=== PATIENT | female | born 1965 | race Caucasian/White ===

== ENCOUNTER 2016-06-18 12:50 | Emergency (ER) | payer BC, OTHER ==
[2016-06-18] MEDS ORDERED: SODIUM CHLORIDE 0.9% 500 ML IV STA (13:44)
[2016-06-18] MEDS ORDERED: RX INFO: IV CONTRAST WAS GIVEN 1 EACH MISC MISCELLANE PRN (13:44)
[2016-06-18] MEDS ORDERED: HYDROmorphone 1 MG/ML 1 ML SYRINGE IVP STA (13:44)
[2016-06-18] MEDS ORDERED: ONDANSETRON 4 MG/2 ML VIAL IVP STA (13:44)
[2016-06-18] MEDS ORDERED: ACETAMINOPHEN TAB 500 MG TAB PO STA (13:47)
[2016-06-18] MEDS ORDERED: IBUPROFEN IV 600 MG in SODIUM CHLORIDE 0.9% 250 ML IV STA (13:47)
--- NOTE | 2016-06-18 13:47 | ED ---
General Adult HPI - General Chief complaint: Abdominal Pain Stated complaint: Abd/Side Pain - Dr Sent Time Seen by Provider: 06/18/16 13:10 Source: patient, RN notes reviewed Mode of arrival: ambulatory Limitations: no limitations - History of Present Illness Initial comments: This is a 50-year-old female who presents emergency Department complaining of a day and a half of abdominal pain. Patient states it feels as though she is having uterine cramping however she is postmenopausal by 7 years. Patient states she also has some rectal pressure and she is sitting up. Patient states the pain is in the right lower quadrant and is much worse with palpation. She went to see her primary medical care doctor and he sent her into the emergency department to get a CAT scan. Patient denies any fever however in the emergency department we did get a fever. Patient denies any chest pain difficulty breathing or cough. Patient denies any back pain. Patient states she was nauseated earlier but did not vomit. Patient denies any diarrhea. - Related Data Home Medications Medication Instructions Recorded Confirmed Budesonide-Formot 160-4.5 Mcg 2 puff INHALATION RT-BID 11/15/13 06/18/16 [Symbicort 160-4.5 Mcg Inhaler] Albuterol Sulfate [Proair Hfa] 1 - 2 puff INHALATION RT-QID PRN 06/18/16 Valsartan [Diovan] 40 mg PO HS 06/18/16 06/18/16 Valsartan [Diovan] 80 mg PO DAILY 06/18/16 06/18/16 Varenicline [Chantix] 0.5 mg PO BID 06/18/16 06/18/16 Previous Rx's Medication Instructions Recorded Hydrocodone/Acetaminophen [[place]worth 1 each PO Q4HR PRN #20 tab 06/18/16 5-325] Ibuprofen [Motrin] 600 mg PO Q6HR PRN #20 tab 06/18/16 Levofloxacin [Levaquin] 750 mg PO DAILY #10 tab 06/18/16 metroNIDAZOLE [Flagyl] 500 mg PO QID 10 Days 06/18/16 Allergies Allergy/AdvReac Type Severity Reaction Status Date / Time latex Allergy Rash/Hives Verified 06/18/16 13:11 Review of Systems ROS Statement: Those systems with pertinent positive or pertinent negative responses have been documented in the HPI. ROS Other: All systems not noted in ROS Statement are negative. Past Medical History Past Medical History: Asthma History of Any Multi-Drug Resistant Organisms: None Reported Past Surgical History: Cholecystectomy Additional Past Surgical History / Comment(s): breast, fallopian tube Past Psychological History: No Psychological Hx Reported Smoking Status: Current every day smoker Past Alcohol Use History: None Reported Past Drug Use History: None Reported General Exam - General Exam Comments Initial Comments: GENERAL: Patient is well-developed and well-nourished. Patient is nontoxic and well- hydrated and is in mild distress. ENT: Neck is soft and supple. No significant lymphadenopathy is noted. Oropharynx is clear. Moist mucous membranes. Neck has full range of motion without eliciting any pain. EYES: The sclera were anicteric and conjunctiva were pink and moist. Extraocular movements were intact and pupils were equal round and reactive to light. Eyelids were unremarkable. PULMONARY: Unlabored respirations. Good breath sounds bilaterally. No audible rales rhonchi or wheezing was noted. CARDIOVASCULAR: There is a regular rate and rhythm without any murmurs gallops or rubs. ABDOMEN: Patient has significant right lower quadrant pain. No palpable organomegaly was noted. There is no palpable pulsatile mass. SKIN: Skin is clear with no lesions or rashes and otherwise unremarkable. NEUROLOGIC: Patient is alert and oriented x3. Cranial nerves II through XII are grossly intact. Motor and sensory are also intact. Normal speech, volume and content. Symmetrical smile. MUSCULOSKELETAL: Normal extremities with adequate strength and full range of motion. No lower extremity swelling or edema. No calf tenderness. LYMPHATICS: No significant lymphadenopathy is noted PSYCHIATRIC: Normal psychiatric evaluation. Normal interpersonal interactions appears functionally intact in deals appropriately with others. No signs of depression. No signs of anxiety. Limitations: no limitations Course Vital Signs 06/18/16 06/18/16 13:07 15:16 Temperature 99.5 F 99.1 F Pulse Rate 117 H 96 Respiratory 16 18 Rate Blood Pressure 171/87 152/78 O2 Sat by Pulse 100 96 Oximetry Medical Decision Making - Medical Decision Making CAT scan shows a uncomplicated diverticulitis of the sigmoid. I spoke with the patient about inpatient versus outpatient treatment she wanted to try outpatient treatment. - Lab Data Result diagrams: 06/18/16 14:05 06/18/16 14:05 Lab Results 06/18/16 06/18/16 06/18/16 Range/Units 14:05 14:05 14:05 WBC 13.0 H (3.8-10.6) k/uL RBC 4.70 (3.80-5.40) m/uL Hgb 14.5 (11.4-16.0) gm/dL Hct 42.5 (34.0-46.0) % MCV 90.4 (80.0-100.0) fL MCH 30.9 (25.0-35.0) pg MCHC 34.2 (31.0-37.0) g/dL RDW 13.3 (11.5-15.5) % Plt Count 380 (150-450) k/uL Neutrophils % 73 % Lymphocytes % 19 % Monocytes % 3 % Eosinophils % 2 % Basophils % 1 % Neutrophils # 9.6 H (1.3-7.7) k/uL Lymphocytes # 2.5 (1.0-4.8) k/uL Monocytes # 0.4 (0-1.0) k/uL Eosinophils # 0.3 (0-0.7) k/uL Basophils # 0.1 (0-0.2) k/uL Sodium 141 (137-145) mmol/L Potassium 4.3 (3.5-5.1) mmol/L Chloride 103 (98-107) mmol/L Carbon Dioxide 26 (22-30) mmol/L Anion Gap 12 mmol/L BUN 9 (7-17) mg/dL Creatinine 0.67 (0.52-1.04) mg/dL Est GFR (MDRD) Af Amer >60 (>60 ml/min/1.73 sqM) Est GFR (MDRD) Non-Af >60 (>60 ml/min/1.73 sqM) Glucose 83 (74-99) mg/dL Plasma Lactic Acid Elvin 0.7 (0.7-2.0) mmol/L Calcium 10.3 H (8.4-10.2) mg/dL Total Bilirubin 0.7 (0.2-1.3) mg/dL AST 18 (14-36) U/L ALT 26 (9-52) U/L Alkaline Phosphatase 93 (38-126) U/L Total Protein 8.0 (6.3-8.2) g/dL Albumin 4.5 (3.5-5.0) g/dL Amylase 66 (30-110) U/L Lipase 114 (23-300) U/L Urine Color Urine Appearance (Clear) Urine pH (5.0-8.0) Ur Specific [place] (1.001-1.035) Urine Protein (Negative) Urine Glucose (UA) (Negative) Urine Ketones (Negative) Urine Blood (Negative) Urine Nitrate (Negative) Urine Bilirubin (Negative) Urine Urobilinogen (<2.0) mg/dL Ur Leukocyte Esterase (Negative) 06/18/16 Range/Units 14:05 WBC (3.8-10.6) k/uL RBC (3.80-5.40) m/uL Hgb (11.4-16.0) gm/dL Hct (34.0-46.0) % MCV (80.0-100.0) fL MCH (25.0-35.0) pg MCHC (31.0-37.0) g/dL RDW (11.5-15.5) % Plt Count (150-450) k/uL Neutrophils % % Lymphocytes % % Monocytes % % Eosinophils % % Basophils % % Neutrophils # (1.3-7.7) k/uL Lymphocytes # (1.0-4.8) k/uL Monocytes # (0-1.0) k/uL Eosinophils # (0-0.7) k/uL Basophils # (0-0.2) k/uL Sodium (137-145) mmol/L Potassium (3.5-5.1) mmol/L Chloride (98-107) mmol/L Carbon Dioxide (22-30) mmol/L Anion Gap mmol/L BUN (7-17) mg/dL Creatinine (0.52-1.04) mg/dL Est GFR (MDRD) Af Amer (>60 ml/min/1.73 sqM) Est GFR (MDRD) Non-Af (>60 ml/min/1.73 sqM) Glucose (74-99) mg/dL Plasma Lactic Acid Elvin (0.7-2.0) mmol/L Calcium (8.4-10.2) mg/dL Total Bilirubin (0.2-1.3) mg/dL AST (14-36) U/L ALT (9-52) U/L Alkaline Phosphatase (38-126) U/L Total Protein (6.3-8.2) g/dL Albumin (3.5-5.0) g/dL Amylase (30-110) U/L Lipase (23-300) U/L Urine Color Light Yellow Urine Appearance Clear (Clear) Urine pH 6.5 (5.0-8.0) Ur Specific [place] 1.004 (1.001-1.035) Urine Protein Negative (Negative) Urine Glucose (UA) Negative (Negative) Urine Ketones Negative (Negative) Urine Blood Negative (Negative) Urine Nitrate Negative (Negative) Urine Bilirubin Negative (Negative) Urine Urobilinogen <2.0 (<2.0) mg/dL Ur Leukocyte Esterase Negative (Negative) Disposition Clinical Impression: Diverticulitis Disposition: HOME SELF-CARE Condition: Good Instructions: Diverticulitis (ED) Prescriptions: Hydrocodone/Acetaminophen [Wentworth 5-325] 1 each PO Q4HR PRN #20 tab PRN Reason: Pain Ibuprofen [Motrin] 600 mg PO Q6HR PRN #20 tab PRN Reason: For pain Levofloxacin [Levaquin] 750 mg PO DAILY #10 tab metroNIDAZOLE [Flagyl] 500 mg PO QID 10 Days Referrals: Callum Odonnell DO [Primary Care Provider] - 1-2 days Time of Disposition: 15:27
[2016-06-18 14:23] LABS: Basophils # (A) 0.1 k/uL (0-0.2); Basophils % (A) 1 %; CH 30.8; CHCM 34.3; Eosinophils # (A) 0.3 k/uL (0-0.7); Eosinophils % (A) 2 %; HCT 42.5 % (34.0-46.0); HDW 2.48; HGB 14.5 gm/dL (11.4-16.0); Luc # (Auto) 0.22; Luc % (Auto) 2; Lymphocytes # (A) 2.5 k/uL (1.0-4.8); Lymphocytes % (A) 19 %; MCH 30.9 pg (25.0-35.0); MCHC 34.2 g/dL (31.0-37.0); MCV 90.4 fL (80.0-100.0); Mean Platelet Volume 7.1; Monocytes # (A) 0.4 k/uL (0-1.0); Monocytes % (A) 3 %; Neutrophils # (A) 9.6 k/uL (1.3-7.7); Neutrophils % (A) 73 %; RDW 13.3 % (11.5-15.5); WBC (Perox) 12.91
[2016-06-18 14:27] LABS: Appearance,Urine Clear (Clear); Bilirubin,Urine Negative (Negative); Glucose,Urine (UA) Negative (Negative); Ketones,Urine Negative (Negative); Leukocyte Esterase,Urine Negative (Negative); Nitrite,Urine Negative (Negative); PH, Urine 6.5 (5.0-8.0); Protein,Urine Negative (Negative); Specific Gravity,Urine 1.004 (1.001-1.035); UA Billing (MACRO vs. MICRO) CHEM; Urobilinogen,Urine <2.0 mg/dL (<2.0)
[2016-06-18 14:31] LABS: ALT 26 U/L (9-52); AST 18 U/L (14-36); Alkaline Phosphatase 93 U/L (38-126); Amylase 66 U/L (30-110); Anion Gap 12 mmol/L; Blood Urea Nitrogen 9 mg/dL (7-17); Calcium 10.3 mg/dL (8.4-10.2); Carbon Dioxide 26 mmol/L (22-30); Chloride 103 mmol/L (98-107); Glucose 83 mg/dL (74-99); Non-African American GFR(MDRD) >60 (>60 ml/min/1.73 sqM); Potassium 4.3 mmol/L (3.5-5.1); Sodium 141 mmol/L (137-145); Total Bilirubin 0.7 mg/dL (0.2-1.3)
[2016-06-18 15:17] VITALS: BP 152/78; PULSE 96; RESP 18; TEMP 99.1
--- NOTE | 2016-06-18 15:24 | CT ---
EXAMINATION TYPE: CT abdomen pelvis w con DATE OF EXAM: 06/18/2016 3:18 PM COMPARISON: NONE HISTORY: Pain CT DLP: 1014.5 mGycm CONTRAST: Contrast-enhanced CT of the abdomen and pelvis was performed.Alml642/100ml. FINDINGS: LUNG BASES-: No visible nodule. No infiltrate. LIVER/GB: No calcified gallstones. No space occupying hepatic lesion. Biliary tree is of normal ca liber. PANCREAS: No inflammation. No distinct mass. SPLEEN: No splenic enlargement. No lesion seen. ADRENALS: No nodule. No thickening. KIDNEYS/BLADDER: No hydronephrosis. No nephrolithiasis. No disctinct renal mass. Urinary bladder g rossly unremarkable. BOWEL: There is mild diverticulitis involving the sigmoid colon. No evidence for abscess or perforati on. The remainder of the colon and small bowel are unremarkable. Normal appendix is visualized. GENITAL ORGANS: No gross abnormality. LYMPH NODES: No greater than 1cm abdominal or pelvic lymph nodes are appreciated. AORTA: No significant abnormality. OSSEOUS STRUCTURES: No significant abnormality is seen. OTHER: No significant additional abnormality is seen. IMPRESSION: 1. Mild uncomplicated sigmoid diverticulitis.
[2016-06-18] MEDS ORDERED: KETOROLAC 60 MG/2 ML VIAL IVP STA (15:29)
[2016-06-18] MEDS ORDERED: LEVOFLOXACIN 750 MG TAB PO STA (15:29)
[2016-06-18] MEDS ORDERED: metroNIDAZOLE 500 MG TAB PO STA (15:29)
== END 2016-06-18 16:12 | disposition home or self-care (01) ==
LOC: EC 12:50
DX: K57.32 Diverticulitis of large intestine without perforation or abscess without bleeding (principal); R50.9 Fever, unspecified; F17.200 Nicotine dependence, unspecified, uncomplicated; Z79.899 Other long term (current) drug therapy; J45.909 Unspecified asthma, uncomplicated; Z91.040 Latex allergy status; Z79.51 Long term (current) use of inhaled steroids
CPT/HCPCS: 99284; 96365; 96375 ×3; 36415; 80053; 82150; 83605; 83690; 85025; 81003; 74177; J2405; J1885; J1170; Q9967; J1741

== ENCOUNTER 2018-02-16 10:30 | Emergency (ER) | payer BC, OTHER ==
[2018-02-16 10:48] VITALS: BP 115/84; PULSE 94; RESP 16; TEMP 98.4
[2018-02-16] MEDS ORDERED: DIPH,PERTUS(ACELL)TETVAC-LF 0.5 ML VIAL IM ONE (11:00)
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
== END 2018-02-16 11:18 | disposition home or self-care (01) ==
LOC: EC 10:30
DX: S51.851A Open bite of right forearm, initial encounter (principal); J45.909 Unspecified asthma, uncomplicated; I10 Essential (primary) hypertension; F17.200 Nicotine dependence, unspecified, uncomplicated; Y04.1XXA Assault by human bite, initial encounter; Y92.89 Other specified places as the place of occurrence of the external cause; Y99.0 Civilian activity done for income or pay
CPT/HCPCS: 99283

== ENCOUNTER 2018-10-28 09:18 | Emergency (ER) | payer OTHER ==
[2018-10-28] MEDS ORDERED: MECLIZINE 12.5 MG TAB PO STA (09:46)
[2018-10-28] MEDS ORDERED: SODIUM CHLORIDE 0.9% 1,000 ML IV STA ×2 (09:46)
[2018-10-28] MEDS ORDERED: METOCLOPRAMIDE 5 MG/ML 2 ML VIAL IVP STA (09:46)
[2018-10-28] MEDS ORDERED: diphenhydrAMINE 50 MG/ML 1 ML VIAL IVP STA (09:46)
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
[2018-10-28] MEDS ORDERED: KETOROLAC 30 MG/ML 1 ML VIAL IVP STA (10:52)
[2018-10-28 11:59] VITALS: BP 129/79; PULSE 71; RESP 18; TEMP 98.6
== END 2018-10-28 11:59 | disposition home or self-care (01) ==
LOC: EC 09:18
DX: S06.0X0A Concussion without loss of consciousness, initial encounter (principal); I10 Essential (primary) hypertension; J45.909 Unspecified asthma, uncomplicated; F17.200 Nicotine dependence, unspecified, uncomplicated; Z79.51 Long term (current) use of inhaled steroids; Z79.899 Other long term (current) drug therapy; Z91.040 Latex allergy status; Z53.8 Procedure and treatment not carried out for other reasons; Y93.I9 Activity, other involving external motion; Y99.0 Civilian activity done for income or pay
CPT/HCPCS: 99284; 96374; 96375; 96361; 70450; J1200; J2765

== ENCOUNTER 2018-11-18 13:14 | Emergency (ER) | payer OTHER ==
[2018-11-18 13:21] VITALS: RESP 18
--- NOTE | 2018-11-18 14:02 | ED ---
Back Pain HPI - General Chief Complaint: Back Pain/Injury Stated Complaint: [facility] - fall, back pain Time Seen by Provider: 11/18/18 13:46 Source: patient Limitations: no limitations - History of Present Illness Initial Comments: Patient is a 53-year-old female presenting to the emergency Department with complaints of right low back pain as radiating into her right leg x 1 week. Patient states she was at work a week ago and slipped on the floor with her right foot going forward. She was able to catch herself on a table and did not actually fall on the floor. Patient states initially she only had some mild right low back pain but the past week it has been progressing. Patient states the pain sometimes radiates into the posterior aspect of her right leg and her right calf. Patient denies any history of back pain prior to this incident. Patient denies any loss of bowel or bladder control, saddle paresthesias. No other complaints at this time. - Related Data Home Medications Medication Instructions Recorded Confirmed Budesonide-Formot 160-4.5 Mcg 1 puff INHALATION RT-BID 11/15/13 10/28/18 [Symbicort 160-4.5 Mcg Inhaler] Valsartan [Diovan] 80 mg PO QAM 06/18/16 10/28/18 Albuterol Sulfate [Proair Hfa] 2 puff INHALATION RT-Q6H PRN 03/16/17 10/28/18 Previous Rx's Medication Instructions Recorded Meclizine [Antivert] 25 mg PO TID #20 tab 10/28/18 Ondansetron Odt [Zofran Odt] 4 mg PO Q8HR PRN #12 tab 10/28/18 Cyclobenzaprine [Flexeril] 5 mg PO BID 5 Days #15 tablet 11/18/18 predniSONE 20 mg PO BID 5 Days #10 tab 11/18/18 Allergies Allergy/AdvReac Type Severity Reaction Status Date / Time latex Allergy Rash/Hives Verified 11/18/18 13:21 Review of Systems ROS Statement: Those systems with pertinent positive or pertinent negative responses have been documented in the HPI. ROS Other: All systems not noted in ROS Statement are negative. Past Medical History Past Medical History: Asthma, Hypertension History of Any Multi-Drug Resistant Organisms: None Reported Past Surgical History: Cholecystectomy Additional Past Surgical History / Comment(s): breast, fallopian tube Past Psychological History: No Psychological Hx Reported Smoking Status: Current every day smoker Past Alcohol Use History: Rare Past Drug Use History: None Reported General Exam - General Exam Comments Initial Comments: GENERAL: Well-appearing, well-nourished and in no acute distress. HEAD: Atraumatic, normocephalic. EYES: Pupils equal round and reactive to light, extraocular movements intact, sclera anicteric, conjunctiva are normal. ENT: TMs normal, nares patent, oropharynx clear without exudates. Moist mucous membranes. NECK: Normal range of motion, supple without lymphadenopathy or JVD. LUNGS: Breath sounds clear to auscultation bilaterally and equal. No wheezes rales or rhonchi. HEART: Regular rate and rhythm without murmurs, rubs or gallops. ABDOMEN: Soft, nontender, normoactive bowel sounds. No guarding, no rebound. No masses appreciated. : Deferred EXTREMITIES: Patient has tenderness over the right SI joint and surrounding musculature. Positive straight leg raise test on the right side. No pitting or edema. No clubbing or cyanosis. NEUROLOGICAL: Cranial nerves II through XII grossly intact. Normal speech, normal gait. PSYCH: Normal mood, normal affect. SKIN: Warm, Dry, normal turgor, no rashes or lesions noted. Limitations: no limitations Course Vital Signs 11/18/18 11/18/18 13:18 14:51 Temperature 98.7 F 98.5 F Pulse Rate 98 78 Respiratory 18 18 Rate Blood Pressure 154/96 150/74 O2 Sat by Pulse 99 98 Oximetry Medical Decision Making - Medical Decision Making Patient is a 53-year-old female presenting with right low back pain radiating into her right groin and down her right leg. Patient states she was at work and slipped but was able to 2 S. Patient did not end up falling on the ground. On exam patient has symptoms consistent with right-sided sciatica. Patient has tenderness of the right SI joint. X-rays reveal no acute dislocations or fractures. Was discussed with patient to alternate between Motrin and Tylenol, heat and ice. Patient was given prescription for a muscle relaxer and short course of steroids. Patient is stable for discharge and she is in agreement with this plan. Return parameters were discussed with the patient she verbalized understanding. Case discussed with Dr. Pritchard. Disposition Clinical Impression: Low back pain, Strain of lumbar region Disposition: HOME SELF-CARE Condition: Stable Instructions (If sedation given, give patient instructions): Acute Low Back Pain (ED) Additional Instructions: Please return to the Emergency Department if symptoms worsen or any other concerns. Continue with heat and/or ice. Alternate Motrin with Tylenol for pain relief. Prescriptions: Cyclobenzaprine [Flexeril] 5 mg PO BID 5 Days #15 tablet predniSONE 20 mg PO BID 5 Days #10 tab Is patient prescribed a controlled substance at d/c from ED?: No Referrals: Callum Odonnell DO [Primary Care Provider] - 1-2 days
--- NOTE | 2018-11-18 14:31 | XR ---
EXAMINATION TYPE: XR lumbar spine 2 or 3V DATE OF EXAM: 11/18/2018 CLINICAL HISTORY: Low back pain, recent fall injury one week ago. TECHNIQUE: Frontal and lateral images of the lumbar spine are obtained. COMPARISON: CT abdomen and pelvis June 18, 2016 FINDINGS: There are 5 lumbar type vertebral bodies redemonstrated. The lumbar spine redemonstrates satisfactory alignment without evidence of acute fracture or dislocation. Vertebral body heights and disk space heights are within normal limits. Cholecystectomy clips overlying soft tissue are redemons trated. IMPRESSION: No acute fracture or dislocation is seen in the lumbar spine.
[2018-11-18 14:52] VITALS: BP 150/74; PULSE 78; TEMP 98.5
== END 2018-11-18 14:52 | disposition home or self-care (01) ==
LOC: EC 13:14
DX: S39.012A Strain of muscle, fascia and tendon of lower back, initial encounter (principal); J45.909 Unspecified asthma, uncomplicated; I10 Essential (primary) hypertension; F17.200 Nicotine dependence, unspecified, uncomplicated; Z79.51 Long term (current) use of inhaled steroids; Z79.899 Other long term (current) drug therapy; Z91.040 Latex allergy status; W18.40XA Slipping, tripping and stumbling without falling, unspecified, initial encounter; Y92.69 Other specified industrial and construction area as the place of occurrence of the external cause; Y99.0 Civilian activity done for income or pay
CPT/HCPCS: 72100; 99283

== ENCOUNTER → 2018-11-24 | Outpatient (CLI) | payer OTHER ==
--- NOTE | 2018-11-24 08:56 | XR ---
EXAMINATION TYPE: XR Hip Complete RT DATE OF EXAM: 11/24/2018 CLINICAL HISTORY: Right hip and back pain after fall a few months ago TECHNIQUE: AP and frogleg views of the right hip are obtained. COMPARISON: None. FINDINGS: There is no acute fracture/dislocation evident in the right hip. The joint space in the r ight hip appears aligned however there are subchondral cysts of the acetabular roof and small margina l osteophytes. The overlying soft tissue appears unremarkable. IMPRESSION: There is no acute fracture or dislocation in the right hip. Mild right femoral acetabula r arthropathy with subchondral cysts and osteophytes of the acetabulum.
== END | disposition home or self-care (01) ==
LOC: RADXRMAIN 08:35
PROVIDERS: ATTEND Emergency Medicine
DX: M16.11 Unilateral primary osteoarthritis, right hip (principal); M25.751 Osteophyte, right hip; M25.851 Other specified joint disorders, right hip
CPT/HCPCS: 73502

== ENCOUNTER → 2018-11-25 | Outpatient (CLI) | payer OTHER ==
--- NOTE | 2018-11-25 16:28 | MR ---
EXAMINATION TYPE: MR lumbar spine wo con DATE OF EXAM: 11/25/2018 COMPARISON: Plain film 11/18/2018 HISTORY: Low back pain into rt side, slip TECHNIQUE: Multiplanar, multisequence images of the lumbar spine were acquired. L1-L2: Normal disc appearance without desiccation. No herniation, protrusion or disc bulging. No ca nal stenosis is present. Foramina are patent bilaterally. L2-L3: Normal disc appearance without desiccation. No herniation, protrusion or disc bulging. No ca nal stenosis is present. Foramina are patent bilaterally. L3-L4: Normal disc appearance without desiccation. No herniation, protrusion or disc bulging. No ca nal stenosis is present. Foramina are patent bilaterally. L4-L5: Normal disc appearance without desiccation. No herniation, protrusion or disc bulging. No ca nal stenosis is present. Foramina are patent bilaterally. Facet arthropathy changes are present. L5-S1: Normal disc appearance without desiccation. No herniation, protrusion or disc bulging. No ca nal stenosis is present. Foramina are patent bilaterally. Lumbar segments are intact. No paraspinal masses are identified. Conus medullaris has a normal appe arance. The posterior aspect of T12 shows a focus of intermediate signal on T1, increased signal on T 2-weighted sequences with well-defined margin, nonaggressive appearance, measuring 13 x 7 mm. Hemangi marion present within the L4 vertebral body, increased on T1 and T2-weighted sequences. There is a mild levoscoliosis as noted on plain film. IMPRESSION: No fracture or subluxation. Scoliosis, facet arthropathy changes. No evidence of disc herniation. Ind eterminate focus of signal abnormality in the T12 vertebral body shows characteristics of cyst, follo w-up could be performed to assess for stability.
== END ==
LOC: RADMRIMAIN 15:01
PROVIDERS: ATTEND Emergency Medicine
DX: M46.96 Unspecified inflammatory spondylopathy, lumbar region (principal); M41.86 Other forms of scoliosis, lumbar region
CPT/HCPCS: 72148